=== PATIENT | male | born 1945 | race Caucasian/White ===

== ENCOUNTER 2025-02-06 20:23 | Emergency (ER) | payer MEDICARE, SELFPAY ==
--- NOTE | ~2025-02-06 | CT_ITS ---
CLINICAL HISTORY: pain trauma? CT cervical spine without contrast Comparison: None Findings: No acute fracture of the cervical spine. Mild reversal of the cervical lordosis at C5. 2 mm anterolisthesis of the C4-C5. Mild height losses of the C6 and C7 appear old/chronic. Degenerative disc changes most pronounced of the C6-C7 with complete disc height loss and prominent disc osteophyte complex. Mild spinal canal stenosis including C4-C5 to C6-C7 by CT. Multifocal foraminal narrowing including [id number] at C5-C6 and C6-C7. Facet arthropathy is multifocal. Ligament calcifications are multifocal. 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 No paraspinal hematoma. Vascular calcifications noted. Mild scarring of the lung apices. Calcified remnants of old granulomatous process of the imaged right lung apex. IMPRESSION: No acute fracture of the cervical spine. This document has been electronically signed by: Noah Mckenzie MD on 02/06/2025 23:12:48
--- NOTE | 2025-02-06 20:28 | ED.GENADULT ---
HPI - General Adult General Chief complaint: Neck Pain/Injury Stated complaint: base of neck pain Time Seen by Provider: 02/06/25 22:13 Source: patient and family Limitations: other (Dementia) History of Present Illness ED Provider: Mary Thomson PA-C HPI narrative: 79-year-old male with a history of known arthritis, dementia, presents with neck pain. Patient began to complain of generalized neck discomfort today. To note, he does work out at the gym on a regular basis including weightlifting. There was no fall or other trauma sustained. No complaint of visual changes, paresthesia or weakness of upper extremities. No radiation of pain. Related Data Previous Rx's ?Medication ?Instructions ?Recorded methylprednisolone 4 mg tablets in 4 mg PO QAM #21 ea 02/07/25 a dose pack (Medrol (Juan)) Allergies Allergy/AdvReac Type Severity Reaction Status Date / Time sulfamethoxazole Allergy Unknown RASH Verified 02/06/25 22:28 [From BACTRIM] trimethoprim [From BACTRIM] Allergy Unknown RASH Verified 02/06/25 22:28 allopurinol Allergy Rash Verified 02/06/25 22:28 Review of Systems Review of Systems: Yes all other systems are reviewed and are negative Constitutional: Constitutional: Denies fatigue, Denies fever(s) and Denies headache(s) Eyes: Eyes: Denies change in vision ENT: Denies headache(s) and Reports neck pain Cardiovascular: Cardiovascular: Reports chest pain and Denies dyspnea Respiratory: Respiratory: Denies cough and Denies dyspnea Gastrointestinal: Gastrointestinal: Denies nausea and Denies vomiting Musculoskeletal: Musculoskeletal: Reports neck pain, Denies numbness, Denies radiating pain into limb and Denies tingling Neurologic: Denies headache(s), Denies numbness and Denies tingling Endocrine: Endocrine: Denies fatigue PMF Past Medical History Attestation statement: The following information was validated with the patient. Social History Social History Advance Directives: No Advance Directives Information Provided: No Physical Exam ED Vital Signs: Vital Signs - 24 hr 02/06/25 20:30 02/06/25 22:22 Temperature 98.2 F 97.3 F Pulse Rate 58 54 Respiratory Rate 16 16 Blood Pressure 143/46 H 175/60 H Pulse Oximetry 97 100 Oxygen Delivery Method Room Air Room Air BMI result Body Mass Index 31.1 Const Other: Alert well-appearing Orientation/consciousness: oriented to person and oriented to place Neck Other: Full range of motion of neck, pain with range of motion, he seems stiff, no midline tenderness no meningeal signs Resp Effort & Inspection: normal respiratory effort Cardio Other: Normal peripheral perfusion Skin Other: Warm dry no rash Neuro General: oriented to person, oriented to place, gait normal, no focal motor deficits and CN's II-XI intact bilaterally Extrem Other: Strength 5/5 bilateral upper extremities Psych Other: Cooperative, pleasant Course Course Course Narrative: 02/06/252028 RADHA Craig This is a Rapid Medical Examination (RME) performed by Anaid Monteiro PA-C in triage. Full HPI, ROS, assessment and treatment plan per primary provider in the Main ED. Hx: 79 yo M hx dementia here w/ family for eval of severe neck pain since yesterday evening. pain is localized to base of his neck which became worse around 1900 tonight. he told hi family he needed to be brought to the ED. family states he has been speaking multiple languages (ecuadorean, lithuanian, luxembourgish), he is otherwise at his baseline dementia. family reports patient has been complaining of left lower tooth pain 6 days ago. no known injury/trauma/falls. PE/vitals: vitals stable. noted periapical swelling to L lower incisor. Plan: labs, UA - will defer imaging to primary provider Medical Decision Making Medical Decision Making MDM Narrative: 79-year-old male with a history of known arthritis, dementia, presents with neck pain. Patient began to complain of generalized neck discomfort today. To note, he does work out at the gym on a regular basis including weightlifting. There was no fall or other trauma sustained. No complaint of visual changes, paresthesia or weakness of upper extremities. No radiation of pain. Problem: Arthritis, dementia History: Per patient and his family I have considered the following differential diagnoses: Cervical sprain, cervical radiculopathy, compression fracture, arthritis, VAD Plan: Patient likely here with musculoskeletal strain, he performs regular physical activity. He likely has a arthritic changes as well. We will obtain imaging of the neck. Thought about VAD, however he is neurologically intact, specifically no visual changes. He is also not having any radicular symptoms. Given Tylenol for pain I have independently reviewed the following tests: CT cervical spine:indings: No acute fracture of the cervical spine. Mild reversal of the cervical lordosis at C5. 2 mm anterolisthesis of the C4-C5. Mild height losses of the C6 and C7 appear old/chronic. Degenerative disc changes most pronounced of the C6-C7 with complete disc height loss and prominent disc osteophyte complex. Mild spinal canal stenosis including C4-C5 to C6-C7 by CT. Multifocal foraminal narrowing including [id number] at C5-C6 and C6-C7. Facet arthropathy is multifocal. Ligament calcifications are multifocal. 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 No paraspinal hematoma. Vascular calcifications noted. Mild scarring of the lung apices. Calcified remnants of old granulomatous process of the imaged right lung apex. IMPRESSION: No acute fracture of the cervical spine. Lab Data 02/06/25 20:41 02/06/25 20:41 Labs: Lab Results 02/06/25 Range/Units 20:41 WBC 6.6 (4.8-10.8) X10*3/uL RBC 4.22 L (4.60-5.80) X10*6/uL Hgb 13.9 L (14.0-18.0) g/dl Hct 40.4 L (42.0-52.0) % MCV 95.7 (80.0-98.0) fL MCH 32.9 (27.0-33.0) pg MCHC 34.4 (31.0-36.0) g/dl RDW 13.4 (11.0-16.0) % Plt Count 125 L (160-400) X10*3/uL MPV 10.8 (9.4-12.4) fL Immature Gran % (Auto) 0.3 (0.0-0.4) % Neut % (Auto) 65.6 (45-73) % Lymph % (Auto) 19.5 L (20-40) % [place] % (Auto) 11.5 H (2-11) % Eos % (Auto) 2.6 (0-4) % Baso % (Auto) 0.5 (0-2) % Lymph # (Auto) 1.3 (1.2-4.9) X10*3/uL [place] # (Auto) 0.8 (0.1-1.2) X10*3/uL Eos # (Auto) 0.2 (0.0-0.4) X10*3/uL Baso # (Auto) 0.0 (0.0-0.2) X10*3/uL Abs Immat Gran (auto) 0.02 (0.00-0.03) X10*3/uL Absolute Neuts (auto) 4.3 (2.0-8.3) x10*3/uL Absolute Nucleated RBC 0.000 (0.0-0.012) X10*3/uL Nucleated RBC % (auto) 0.0 (0.0-0.2) /100WBC PT 49.8 H (10.9-12.4) SEC INR 4.3 H (0.9-1.1) Sodium 140 (135-145) mmol/L Potassium 5.1 (3.3-5.1) mmol/L Chloride 107 (96-108) mmol/L Carbon Dioxide 23 (22-29) mmol/L Anion Gap 15 (12-20) BUN 39 H (9-16) mg/dL Creatinine 2.01 H (0.5-1.4) mg/dL Estim Creat Clear Calc 25.5 Estimated GFR 32 Random Glucose 124 H (60-115) mg/dL Calcium 9.6 (8.4-10.2) mg/dL Magnesium 2.2 (1.6-2.6) mg/dL Total Bilirubin 0.6 (0.0-1.0) mg/dL AST 46 H (5-37) U/L ALT 33 (0-40) U/L Alkaline Phosphatase 69 (39-117) U/L Total Protein 7.5 (6.5-8.0) g/dL Albumin 4.2 (3.5-5.0) g/dL Discharge Plan Discharge Clinical Impression: Strain of neck muscle Patient Disposition: Home, Self-Care Instructions: Cervical Strain (ED), Osteoarthritis (ED) Additional Instructions: The CT scan revealed no acute injury, you have significant arthritic changes. You are being treated for cervical strain. See home care instructions. You can use [id number] Tylenol 1000 mg taken every 8 hours for your pain. In addition, take the Medrol Dosepak, take this medication in the mornings. Follow up with your primary care provider as needed. Prescriptions: New methylprednisolone [Medrol (Juan)] 4 mg tablets,dose pack 4 mg PO QAM Qty: 21 0RF Rx Instructions: Take per package instructions Print Language: Malagasy
[2025-02-06 20:30] VITALS: BP 143/46; PULSE 58; RESP 16; TEMP 36.8; O2SAT 97; BMI 27.1
[2025-02-06 20:47] LABS: MANUAL DIFF FLAG NO
[2025-02-06 21:00] LABS: Basophils Percent Auto 0.5 % (0-2); Eosinophils Absolute Auto 0.2 X10*3/uL (0.0-0.4); Eosinophils Percent Auto 2.6 % (0-4); Hematocrit 40.4 % (42.0-52.0); Hemoglobin 13.9 g/dl (14.0-18.0); Imm Gran Abs Auto 0.02 X10*3/uL (0.00-0.03); Imm Gran Pct Auto 0.3 % (0.0-0.4); Lymphocytes Absolute Auto 1.3 X10*3/uL (1.2-4.9); Lymphocytes Percent Auto 19.5 % (20-40); Mean Corpuscular HGB Conc 34.4 g/dl (31.0-36.0); Mean Corpuscular Hemoglobin 32.9 pg (27.0-33.0); Mean Corpuscular Volume 95.7 fL (80.0-98.0); Mean Platelet Volume 10.8 fL (9.4-12.4); Monocytes Absolute Auto 0.8 X10*3/uL (0.1-1.2); Monocytes Percent Auto 11.5 % (2-11); Neutrophils Absolute Auto 4.3 x10*3/uL (2.0-8.3); Neutrophils Percent Auto 65.6 % (45-73); Platelet Count 125 X10*3/uL (160-400); Red Blood Count 4.22 X10*6/uL (4.60-5.80); Red Cell Distribution Width 13.4 % (11.0-16.0); White Blood Count 6.6 X10*3/uL (4.8-10.8)
[2025-02-06 21:02] LABS: Alanine Aminotransferase 33 U/L (0-40); Albumin Level 4.2 g/dL (3.5-5.0); Alkaline Phosphatase 69 U/L (39-117); Anion Gap 15 (12-20); Aspartate Amino Transferase 46 U/L (5-37); Bilirubin Total 0.6 mg/dL (0.0-1.0); Blood Urea Nitrogen 39 mg/dL (9-16); Calcium 9.6 mg/dL (8.4-10.2); Carbon Dioxide 23 mmol/L (22-29); Chloride 107 mmol/L (96-108); Creatinine Clr Calc Pharmacy 25.5; Estimated Glomerular Filt Rate 32; Glucose Random 124 mg/dL (60-115); Magnesium 2.2 mg/dL (1.6-2.6); Potassium 5.1 mmol/L (3.3-5.1); Sodium 140 mmol/L (135-145); Total Protein 7.5 g/dL (6.5-8.0)
[2025-02-06 21:03] LABS: INTERNATIONAL NORM RATIO 4.3 (0.9-1.1); Prothrombin Time 49.8 SEC (10.9-12.4)
[2025-02-06 22:22] VITALS: BP 175/60; PULSE 54; RESP 16; TEMP 36.3; O2SAT 100
[2025-02-06 22:25] VITALS: BMI 31.1
[2025-02-07] MEDS: Acetaminophen 325 MG TABLET 975 MG PO (00:08)
[2025-02-07 00:23] VITALS: BP 175/60; PULSE 54; RESP 16; TEMP 36.3; O2SAT 100
== END 2025-02-07 00:24 | disposition home or self-care (01) ==
PROVIDERS: Physician Assistant Medical; Emergency Provider Emergency Medicine; PCP Family Medicine
DX: S16.1XXA Strain of muscle, fascia and tendon at neck level, initial encounter (principal); X50.0XXA Overexertion from strenuous movement or load, initial encounter; R79.1 Abnormal coagulation profile; Y93.B3 Activity, free weights; Y92.59 Other trade areas as the place of occurrence of the external cause; Y99.9 Unspecified external cause status
CPT/HCPCS: 36415; 72125; 80053; 83735; 85025; 85610; 99284

== ENCOUNTER → 2025-02-06 22:26 | Outpatient (BNV) | payer MEDICARE, SELFPAY | PROVIDERS: Emergency Provider Emergency Medicine; PCP Family Medicine; Visit Provider Radiology Neuroradiology | DX: M54.2 Cervicalgia (principal) | CPT/HCPCS: 72125 ==